=== PATIENT | male | born 1965 | race Two or more races ===

== ENCOUNTER 2025-08-25 13:00 | Outpatient (RCR) | payer MEDICAID, SELFPAY ==
--- NOTE | 2025-08-12 14:41 | PTNOTE_ITS ---
PT OP Initial Eval Patient Information Outpatient Physical Therapy Treatment Date: 08/12/25 Visit Reasons: Cerebral infarction/weakness Medical Diagnosis: I63.12 R26.81 R53.1 Treatment Dx #1: L hemiplegia Start of Care: 08/12/25 Date of Onset: February 2024 Smoking Status Smoking Status: Never smoker Initial Assessment Subjective: Pt is 60 yr old bulgarian speaking male s/p CVA last year presents ambulating with a SPC with his and son. Pt reports L hand and UE weakness that makes difficult to grasp and hold objects and B LE weakness from the knees down. He can walk for 5-10 mins and then sits to rest. 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 He has balance deficits and scored low on the TUG which indicates higher risk of falls. Pt requires skilled therapy to meet goals and has fair rehab potential. Short Term and Snf Goals 1. Ind with HEP 2. Decreased TUG score to under 13 seconds 3. Improved single leg balance to 5 seconds each foot 4. Ambulate with symmetrical gait pattern x 30 mins 5. Improved L quad strength to 4-/5 Treatment Plan ? 1. Manual therapy ? 2. Therex ? 3. Modalities as indicated, moist heat, ice, estim 4. Neuromuscular reeducation 5. Gait training Frequency and Duration: 2x a week for 12 sessions plus the evaluation. We will need more authorized visits to continue past 4 and provider's signature on this evaluation Certification Dates: 08/12/25 to 11/10/25 Procedure Charges OP PT Eval Mod Complex 30 minutes: Yes
--- NOTE | 2025-08-18 16:04 | PT.ODAYNRPT ---
PT Outpatient Daily Note OP Daily Note Outpatient Physical Therapy Treatment Date: 08/18/25 Visit Reasons: Cerebral infarction/weakness Subjective: Pt reports he can't feel his feet because they are numb Objective: See F/S for therex Assessment: Poor single leg balance limits dynamic balance Plan: Continue per POC Length of Time (minutes) of Treatment: 30 Minutes Procedure Charges Therapeutic Exercise 30 minutes: Yes
--- NOTE | 2025-08-25 13:46 | PT.ODAYNRPT ---
PT Outpatient Daily Note OP Daily Note Outpatient Physical Therapy Treatment Date: 08/25/25 Visit Reasons: Cerebral infarction/weakness Subjective: Pt reports he can't feel his feet because they are numb Objective: See F/S for therex Assessment: Poor single leg balance limits dynamic balance and stepping over cones. Plan: Continue per POC Length of Time (minutes) of Treatment: 30 Minutes Procedure Charges Therapeutic Exercise 30 minutes: Yes
== END 2025-08-27 23:59 | disposition home or self-care (01) ==
LOC: CPTX 13:00
PROVIDERS: PCP Physician Assistant; Referring Provider Physician Assistant; Visit Provider Physician Assistant
DX: I69.354 Hemiplegia and hemiparesis following cerebral infarction affecting left non-dominant side (principal); I69.398 Other sequelae of cerebral infarction; R26.81 Unsteadiness on feet; E11.9 Type 2 diabetes mellitus without complications; I10 Essential (primary) hypertension
CPT/HCPCS: 97110; 97162

== ENCOUNTER 2025-09-02 13:30 | Outpatient (RCR) | payer MEDICAID, SELFPAY ==
--- NOTE | 2025-08-31 15:07 | PT.ODAYNRPT ---
PT Outpatient Daily Note OP Daily Note Outpatient Physical Therapy Treatment Date: 08/31/25 Visit Reasons: Cerebrovascular accident Subjective: Pt reports he can't feel his feet because they are numb Objective: See F/S for therex Assessment: Slightly improved single leg balance with less upper body sway Plan: Continue per POC Length of Time (minutes) of Treatment: 30 Minutes Procedure Charges Therapeutic Exercise 30 minutes: Yes
--- NOTE | 2025-09-02 14:07 | PT.ODAYNRPT ---
PT Outpatient Daily Note OP Daily Note Outpatient Physical Therapy Treatment Date: 09/02/25 Visit Reasons: Cerebrovascular accident Subjective: No complaints today. Objective: Please see flow sheet for ther ex list. Assessment: Interventions given sitting and standing to maximize rehab potential. Plan: Waiting on insurance auth. Length of Time (minutes) of Treatment: 30 Minutes Procedure Charges Therapeutic Exercise 30 minutes: Yes
== END 2025-09-26 23:59 | disposition home or self-care (01) ==
LOC: CPTX 13:30
PROVIDERS: PCP Physician Assistant; Referring Provider Physician Assistant; Visit Provider Physician Assistant
DX: I69.354 Hemiplegia and hemiparesis following cerebral infarction affecting left non-dominant side (principal); I63.12 Cerebral infarction due to embolism of basilar artery; I69.398 Other sequelae of cerebral infarction; R26.81 Unsteadiness on feet; I10 Essential (primary) hypertension
CPT/HCPCS: 97110